=== PATIENT | female | born 1965 | race Caucasian/White ===

== ENCOUNTER 2016-09-19 09:34 | Outpatient (CLI) | payer BC ==
[2016-09-19 10:05] LABS: BASOPHILS % 0.5 (0.0-1.5); EOSINOPHILS % 0.9 % (0.0-6.8); MEAN CORPUSCULAR HEMOGLOBIN 31.1 pg (28.0-34.0); MEAN CORPUSCULAR VOLUME 94.1 fl (80.0-100.0); MONOCYTES % 5.9 % (0.0-11.0); NEUTROPHILS # 5.4 # k/uL (1.4-7.7)
[2016-09-19 10:22] LABS: eGFR (African) > 60; eGFR (Non-African) > 60
== END 2016-09-19 09:35 ==
LOC: LAB 09:34
PROVIDERS: ATTEND Physician Assistant
DX: Z00.00 Encounter for general adult medical examination without abnormal findings (principal)
CPT/HCPCS: 36415; 80053; 80061; 84443; 85025

== ENCOUNTER 2016-11-10 06:54 | Day surgery (SDC) | payer BC ==
[2016-11-10] MEDS ORDERED: SALINE FLUSH 10 ML DISP.SYRIN IVF ONE (08:00)
[2016-11-10] MEDS ORDERED: PROPOFOL 500 MG/50 ML VIAL IV ONE (08:00)
[2016-11-10] MEDS ORDERED: LACTATED RINGERS 1,000 ML IV.SOLN IV ONE (08:00)
--- NOTE | 2016-11-13 11:59 | Operative Note ---
SURGEON: Alphonse Rajput MD ANESTHESIA: MAC anesthesia. ESTIMATED BLOOD LOSS: None. COMPLICATIONS: None. FINDINGS: Normal colonoscopy to cecum. Excellent prep. PREOPERATIVE DIAGNOSIS: Screening colonoscopy. POSTOPERATIVE DIAGNOSIS: Normal colonoscopy. PROCEDURE PERFORMED: Colonoscopy to cecum. DESCRIPTION OF PROCEDURE: Patient was brought to the endoscopy suite and placed in the left lateral decubitus position. A rectal examination was performed which was normal. The colonoscope was inserted and passed easily to the cecum. The prep was very good. The ileocecal valve and appendiceal orifice were identified. The colonoscope was slowly retracted being careful to inspect all santana. A greater than 6 minute withdrawal time was done. There were no polyps or other lesions seen. The colonoscope was removed. The patient tolerated the procedure well. DISPOSITION: I recommend repeat colonoscopy in 7 to 10 years. cc: Dr. Rahat BRAY
== END 2016-11-10 06:55 ==
LOC: OPSURG 06:54
PROVIDERS: ATTEND Colon & Rectal Surgery
DX: Z12.11 Encounter for screening for malignant neoplasm of colon (principal)
CPT/HCPCS: 45378; 81025; J2704; J7120; S1016